=== PATIENT | male | born 1975 | race Caucasian/White ===

== ENCOUNTER 2016-08-12 08:40 | Day surgery (SDC) | payer MEDICARE, OTHER ==
[2016-08-02 15:55] VITALS: BMI 24.4
[~2016-08-12 08:40] MED LIST: LACTATED RINGERS 1,000 ML IV SCH
[2016-08-12 09:08] VITALS: RESP 16; TEMP 97.9
[2016-08-12] MEDS ORDERED: LIDOCAINE 1% 20 ML VIAL (10MG/ML) FOR IV START INTRADERMA ONE (09:15)
[2016-08-12] MEDS ORDERED: fentaNYL (PF) 50 MCG/ML 2 ML AMP ONE (09:34)
[2016-08-12] MEDS ORDERED: MIDAZOLAM 2 MG/2 ML VIAL ONE (09:34)
[2016-08-12] MEDS ORDERED: TRIAMCINOLONE ACETONIDE 40 MG/ML 1 ML VIAL ONE (09:34)
[2016-08-12] MEDS ORDERED: IOHEXOL 180 MG/ML 1 ML ML ONE (09:34)
--- NOTE | 2016-08-12 09:51 | P.PCN ---
Date of Procedure: 08/12/16 Procedure(s) Performed: PREOPERATIVE DIAGNOSIS: 1- Lumbar Degenerative Disc Diseases 2-Lumbar radiculopathy. 3-lumbar herniated disc disease. POSTOPERATIVE DIAGNOSIS: Same as preop diagnosis. PROCEDURE 1. Lumbar epidural steroid injection under fluoroscopic guidance at the L5-S1 level. 2. Lumbar epidurogram. ANESTHESIA: Local with 1% lidocaine 3 ml and IV sedation with Versed 1 mg , and fentanyle 50 Mcg EBL: Minimal PROCEDURE INDICATION: The patient with low back pain and radiculitis symptoms unresponsive to conservative treatment. Fluoroscopy was used to optimize visualization of the needle placement and to maximize safety. PROCEDURE DESCRIPTION / TECHNIQUE: The patient was seen and identified in the preoperative area. Risks, benefits , complications including but not limited to infections ,bleeding ,allergic reaction to the medications ,nerve damage and not complete pain releife , and alternatives were discussed with the patient. The patient agreed to proceed with the procedure and signed the consent. IV was started, and vital signs were stable. Patient was taken to the OR and time out was completed. The patient was placed in the prone position on procedure table and a pillow was placed under the abdomen to reduce lumbar lordosis. The lumbosacral area was prepped and draped in the usual sterile fashion.ere closely monitored during the procedure. Conscious sedation was used during the procedure to decrease patients anxiety. Vital signs was monitered during the entire procedure. Using anterior-posterior fluoroscopy, the L5-S1 interlaminar space was identified and the skin over this site was marked and then infiltrated with 1% lidocaine subcutaneously. Subsequently, a 20-gauge Tuohy epidural needle was inserted and advanced toward the epidural space using the Loss of resistance technique and guided by AP and lateral fluoroscopy. The correct needle position in the epidural space was verified with the injection of 2 mL of the water soluble contrast dye Omnipaque 180 contrast and observing an excellent epidurogram with the epidural spread of the dye, after negative aspiration for blood and CSF and in the absence of paresthesias. Again after negative aspiration, a 6 ml mixture containing 80 mg of Kenalog and 2 ml of preservative free Normal Saline, and 2 ml of preservative free lidocaine 1% solution was injected and a washout of epidurogram was seen. Needle was withdrawn intact, skin was cleansed, and bandages were applied. COMPLICATIONS: None DISPOSITION / PLANS: The patient was placed in a supine position and transferred to the recovery area in a stable condition for observation. There was no evidence of lower extremity motor or sensory deficit after the procedure. Patient was discharged from the recovery room after meeting discharge criteria. Home discharge instructions were given to the patient by the staff. The patient was reexamined prior to discharge. The patient will schedule a follow up in the clinic in 2-4 weeks.
[2016-08-12] MEDS ORDERED: IV FLUID CONTINUATION 1,000 ML IV ONE (10:09)
[2016-08-12 10:31] VITALS: BP 118/78; PULSE 68
--- NOTE | 2016-08-12 11:31 | FL ---
EXAMINATION TYPE: FL guided pain mgmt statistic DATE OF EXAM: 08/12/2016 9:53 AM COMPARISON: NONE HISTORY: Back pain Fluoroscopy support supplied to the referring clinician. See dictated report from anesthesia, intrao perative C-arm image documents the procedure, one second fluoroscopy time
== END 2016-08-12 10:47 | disposition home or self-care (01) ==
LOC: ORPAIN 08:40
PROVIDERS: ATTEND Specialist
DX: M51.16 Intervertebral disc disorders with radiculopathy, lumbar region (principal); M51.26 Other intervertebral disc displacement, lumbar region
CPT/HCPCS: 62323; J2250; J3301; Q9965; J3010

== ENCOUNTER → 2016-09-10 | Outpatient (CLI) | payer MEDICARE, OTHER ==
[2016-09-10 12:28] VITALS: BP 116/82; PULSE 64; RESP 16; TEMP 97.7
--- NOTE | 2016-09-10 19:52 | P.PN ---
Subjective This is follow-up visit for this patient with a history of severe and chronic low back pain secondary to lumbar degenerative disc disease, lumbar herniated disc disease, we have done interventional pain management injection, lumbar epidural steroid injections 2, and is currently on pain medications 1-Neurontin 200 mg every 8 hours 2-naproxen 500 mg twice a day Patient denies any side effects of the medication, denies excessive drowsiness or sleepiness, denies suicidal ideation, and reports that the current pain medication is NOT helping To control the pain and improve activity of daily living the VAS /10 without the medications ,and it drope to /10 with the medication Physical Examinations : 1-Constitutiona : Cooperative , not in acute distress . 2-HEENT : nech ; supple , no Lymphadenopathy , no Thyromegaly , normal thyroid size . eyes : no ptosis , no icterus, no photophobia . ENT : normal of hearing , normal oropharynx , no Thrush . 3- Respiratory : Chest clear to auscultations Bilaterally , no wheezing , no Rhonchi . 4- Cardiovascular : regular rate and rhythem , S1 , S2 , no S3 , no S4. 5- Gastrointestinal : abdomen soft no tenderness , bowel sounds positive all four quadrents , no organomegally . 6- Genitourinary : Defferred . 7- neurologic : Cranial nerve II to XII intact , no focal neurological deffecit . 8-psychatric : alert , oriented X 3 , appropriate affect , intact judgment and insight . 9-Lymphatic : no Lymphadenopathy . 10- musculoskeltal : exams of the Lumber spine = motor strength lower extremities ,thigh and legs .12/06 Assessment and plan = - Chronic low back pain secondary to lumbar degenerative disc disease , lumbar herniated disc disease , status post lumbar epidural steroid injections 2, patient reported that his pain improved significantly and he had minimal or no pain most of the time, and he is currently using Neurontin 200 mg 3 times a day and naproxen when necessary, recommend continue the same medication and patient will follow with the pain clinic in 2 months patient already had medication refills Objective - Vital Signs Vital signs: Vital Signs Temp 97.7 F 09/10/16 12:19 Pulse 64 09/10/16 12:19 Resp 16 09/10/16 12:19 BP 116/82 09/10/16 12:19 Pulse Ox 99 02/07/17 12:19 Intake & Output 09/10/16 09/10/16 09/11/16 06:59 18:59 06:59 Weight 86.183 kg
== END | disposition home or self-care (01) ==
LOC: PNWHC3 12:11
PROVIDERS: ATTEND Specialist
DX: G89.29 Other chronic pain (principal); M51.36 Other intervertebral disc degeneration, lumbar region; M51.26 Other intervertebral disc displacement, lumbar region; Z79.899 Other long term (current) drug therapy
CPT/HCPCS: 99211

== ENCOUNTER → 2016-11-05 | Outpatient (CLI) | payer MEDICARE, OTHER ==
[2016-11-05 13:23] VITALS: BP 114/82; PULSE 71; RESP 16
--- NOTE | 2016-11-05 13:59 | P.PN ---
Progress Note - Text Patient returns for followup for chronic back pain. Patient recently underwent LESI x 2, which provided excellent relief. Patient continues only on Neurontin medications for pain and wishes to come off this medication today. Patient denies adverse drug effects from medications. Today, pt denies new-onset weakness, bowel/bladder incontinence, or any other signs or symptoms of cauda equina syndrome. There are no signs of acute intoxication, and no indications of medication diversion or overuse. In addition to above, 13-point review of systems is also negative for chest pain , shortness of breath, changes in vision, changes in hearing, new onset weakness , abdominal pain, diarrhea, extreme fatigue, malaise, fever, skin changes, homicidal or suicidal ideation, or bowel or bladder incontinence. Vital Signs: Reviewed in EMR Gen: WDWN, AAOx3, NAD HEENT: NCAT, EOMI, hearing grossly normal Pulm: resp unlabored Abd: soft, NT, ND Neck: supple, trachea midline Lumbar paravertebral tenderness: mild bilateral Neuro: CN II-XII grossly intact, muscle strength lower extremities PRESERVED Imaging: Reviewed in EMR Assessment: 1. lumbar radiculopathy 2. chronic pain syndrome Plan: 1. Explanation: Opioid and psychological risk scores were reviewed. Diagnoses , prognoses, and multiple treatment options including but not limited to physical therapy, interventional therapies, adjuvant medical therapies, narcotic medication therapies, and surgery were discussed with the patient and all questions were answered to the patient's satisfaction. 2. Opioid agreement: no opioids prescribed today 3. Counseling: The patient was counseled extensively on BODY MASS INDEX, EXERCISE. Specifically, the patient was instructed regarding the importance of weight control, and exercise in the context of both chronic pain and overall health. 4. Procedures: none for now 5. Consultations: None 6. Investigations: None 7. Medications: decrease Neurontin 1 pill/day each week, so 5 pills/day for this week, 4 pills/day next week, etc. until off 8. Disposition: f/u as needed; patient can call to schedule LESI and does not need to be seen in clinic PQRS measures: 1-Patient's medications are documented in the chart. 2-Tobacco use is negative, counseling NOT given 3-Patient has not had a pneumococcal vaccine. 4-Advanced care planning discussed, patient unable to give. 5-Opioid contract NOT signed with the patient as no opioids prescribed. 6-Pain positive, follow-up visit or procedure scheduled 7-Patient's blood pressure measured and documented, WNL. 8-Patient's weight was measured, and body mass index within the normal limits, and counseling was done. Patient instructed to follow up with PCP. 9-Patient WAS NOT identified as an unhealthy alcohol user.
== END | disposition home or self-care (01) ==
LOC: PNWHC3 12:20
PROVIDERS: ATTEND Anesthesiology
DX: M54.16 Radiculopathy, lumbar region (principal); G89.4 Chronic pain syndrome
CPT/HCPCS: 99211

== ENCOUNTER → 2024-05-05 | Outpatient (CLI) | payer MEDICARE, OTHER ==
--- NOTE | 2024-05-05 09:57 | US ---
EXAMINATION TYPE: US liver DATE OF EXAM: 05/05/2024 COMPARISON: NONE CLINICAL INDICATION: Male, 48 years old with history of R74.01 ELEVATION OF LEVELS OF LIVER TRANSAMIN ASE L; abn lfts TECHNIQUE: Grayscale and color Doppler imaging of the right upper quadrant was performed. FINDINGS: EXAM MEASUREMENTS: Liver Length: 15.3 cm Gallbladder Wall: Surgically absent CBD: 0.7 cm Right Kidney: 11.2 x 5.0 x 5.0 cm Pancreas: wnl Liver: intercostal imaging only due to bowel gas Gallbladder: Surgically absent Evidence for sonographic An's sign: no CBD: wnl Right Kidney: wnl IMPRESSION: No evidence for acute process. [facility], , 05/05/2024 9:55 AM
== END | disposition home or self-care (01) ==
LOC: RADUSWWP 08:38
PROVIDERS: ATTEND Family Medicine
DX: R74.01 Elevation of levels of liver transaminase levels (principal)
CPT/HCPCS: 76705